=== PATIENT | male | born 1990 | race Caucasian/White ===

== ENCOUNTER 2024-06-06 16:50 | Inpatient (IN) | payer MEDICAID ==
[~2024-06-06] VITALS: Ht 177.8 cm; Wt 99.8 kg
[2024-06-06 16:59] VITALS: BP_SYST 142; PULSE 91; RESP 16; TEMP 97.4; O2SAT 100
[2024-06-06 18:43] LABS: BASOPHILS % (AUTO) 0.1 % (0.0-2.0); EOSINOPHILS % (AUTO) 0.1 % (0.0-4.0); HEMATOCRIT 50.6 % (36-54); HEMOGLOBIN 17.3 g/dL (14.0-18.0); LYMPHOCYTES # (AUTO) 0.5 K/uL (1.0-5.5); LYMPHOCYTES % (AUTO) 3.4 % (20.5-51.5); MEAN CORPUSCULAR HEMOGLOBIN 29 pg (27-31); MEAN CORPUSCULAR HGB CONC 34 % (32-36); MEAN CORPUSCULAR VOLUME 85 fL (79.0-98.0); MONOCYTES # (AUTO) 0.5 K/uL (0.0-1.0); MONOCYTES % (AUTO) 3.3 % (1.7-9.3); NEUTROPHILS # (AUTO) 14.6 K/uL (1.8-7.7); NEUTROPHILS % (AUTO) 93.1 % (40.0-70.0); PLATELET COUNT (AUTO) 179 K/uL (130-430); RED BLOOD CELL COUNT(AUTO) 5.92 MIL/uL (4.2-6.2); RED CELL DISTRIBUTION WIDTH 12.9 % (9.0-15.0); WHITE BLOOD COUNT (AUTO) 15.6 K/uL (4.8-10.8)
[2024-06-06 18:59] LABS: ALBUMIN 4.8 g/dL (3.4-4.8); BILIRUBIN,DIRECT 0.2 mg/dL (0.0-0.3); CALCIUM 10.1 mg/dL (8.4-11.0); CREATININE 1.02 mg/dL (0.55-1.30); POTASSIUM 3.5 mmol/L (3.5-5.1); TOTAL PROTEIN, SERUM 8.8 g/dL (6.4-8.3)
[2024-06-06 19:04] LABS: BILIRUBIN,URINE NEGATIVE (NEGATIVE); BLOOD, URINE NEGATIVE (NEGATIVE); CLARITY/URINE CLEAR (CLEAR); COLOR,URINE YELLOW (YELLOW); GLUCOSE,URINE NEGATIVE (NEGATIVE); KETONES,URINE 3+ (NEGATIVE); LEUKOCYTE ESTERASE ,URINE NEGATIVE (NEGATIVE); NITRITE, URINE NEGATIVE (NEGATIVE); PROTEIN URINE 1+ (NEGATIVE); UROBILINOGEN,URINE 0.2 (0.2-1.0)
[2024-06-06 19:11] LABS: BACTERIA,URINE RARE /HPF (None Seen); RBC,URINE 0-3 /HPF (0-3); WBC,URINE 0-3 /HPF (0-3)
[2024-06-06 19:12] LABS: MUCUS,URINE None Seen /LPF (None Seen)
[2024-06-06] MEDS: NACL 0.9% 1,000 ML IV ONE (19:59)
[2024-06-06] MEDS: MORPHINE 4 MG INJ. 4 MG/ML VIAL IVP ONE (20:00)
[2024-06-06] MEDS: ONDANSETRON HCL 4 MG/2 ML VIAL IVP ONE (20:01)
[2024-06-06] MEDS ORDERED: PIPERACILLIN/TAZOBACTAM 3.375 GM/VIAL (ZOSYN) IV ONE (20:12)
[2024-06-06] MEDS: PIPERACILLIN/TAZO 3.375 GM in NS 50 ML IV ONE (20:52)
[2024-06-06] MEDS: KCL 20 mEq in D5/0.45NS 1000mL 1,000 ML IV ONE (21:34)
[2024-06-06] MEDS: MORPHINE 4 MG INJ. 4 MG/ML VIAL IVP PRN (22:01)
[2024-06-06] MEDS: ONDANSETRON HCL 4 MG/2 ML VIAL IVP PRN (22:02)
[2024-06-07] VITALS (7 sets, daily range): BP systolic 101–141; PULSE 88–105; RESP 16–20; TEMP 96.9–100.2; O2SAT 93–97
[2024-06-07 05:44] LABS: BASOPHILS % (AUTO) 0.1 % (0.0-2.0); CREATININE 1.05 mg/dL (0.55-1.30); HEMOGLOBIN 15.5 g/dL (14.0-18.0); LYMPHOCYTES # (AUTO) 0.7 K/uL (1.0-5.5); MEAN CORPUSCULAR HEMOGLOBIN 29 pg (27-31); MEAN CORPUSCULAR HGB CONC 33 % (32-36); MEAN CORPUSCULAR VOLUME 87 fL (79.0-98.0); MONOCYTES # (AUTO) 1.2 K/uL (0.0-1.0); MONOCYTES % (AUTO) 8.4 % (1.7-9.3); NEUTROPHILS # (AUTO) 12.8 K/uL (1.8-7.7); NEUTROPHILS % (AUTO) 86.5 % (40.0-70.0); PLATELET COUNT (AUTO) 180 K/uL (130-430); POTASSIUM 3.7 mmol/L (3.5-5.1); RED BLOOD CELL COUNT(AUTO) 5.43 MIL/uL (4.2-6.2); RED CELL DISTRIBUTION WIDTH 12.7 % (9.0-15.0); WHITE BLOOD COUNT (AUTO) 14.8 K/uL (4.8-10.8)
[2024-06-07] MEDS: PIPERACILLIN/TAZO 3.375 GM in NS 50 ML IV ONE ×2 (07:20→07:21)
[2024-06-07 07:34] LABS: INR 1.1 (0.80-1.20); PROTHROMBIN TIME 11.2 SECS (9.5-12.5)
[2024-06-07] MEDS: BUPIVACAINE LIPOSOME/PF 266 MG/20 ML VIAL INFIL ONE (09:06)
[2024-06-07] MEDS: fentaNYL CITRATE/PF 100 MCG/2 ML AMP ONE ×2 (09:59→11:07)
[2024-06-07] MEDS: HYDROmorphone 2 MG/ML VIAL ONE (10:06)
[2024-06-07] MEDS ORDERED: HYDROmorphone 1 MG/ML INJ. CARTRIDGE IVP PRN ×2 (11:15)
[2024-06-07] MEDS ORDERED: METOCLOPRAMIDE HCL 10 MG/2 ML VIAL IVP PRN (11:15)
[2024-06-07] MEDS ORDERED: ONDANSETRON HCL 4 MG/2 ML VIAL IVP PRN (11:15)
[2024-06-07] MEDS ORDERED: HYDROmorphone 2 MG/ML VIAL IVP PRN (11:15)
[2024-06-07] MEDS ORDERED: NALOXONE HCL 0.4 MG/ML AMP (NARCAN) IVP PRN ×2 (11:15)
[2024-06-07] MEDS ORDERED: ceFAZolin SODIUM 1 GM VIAL ONE (11:26)
[2024-06-07] MEDS: KCL 20 mEq in D5/0.45NS 1000mL 1,000 ML IV SCH (17:02)
[2024-06-07] MEDS: PIPERACILLIN/TAZO 3.375 GM in NS 50 ML IV SCH (20:38)
[2024-06-08] VITALS: BP_SYST 105; PULSE 89; RESP 16; TEMP 97.5; O2SAT 96
[2024-06-08] MEDS: MORPHINE 4 MG INJ. 4 MG/ML VIAL IVP PRN (04:06)
[2024-06-08 08:26] LABS: BASOPHILS % (AUTO) 0.2 % (0.0-2.0); EOSINOPHILS % (AUTO) 0.1 % (0.0-4.0); HEMATOCRIT 40.6 % (36-54); HEMOGLOBIN 13.5 g/dL (14.0-18.0); LYMPHOCYTES # (AUTO) 0.5 K/uL (1.0-5.5); LYMPHOCYTES % (AUTO) 3.4 % (20.5-51.5); MEAN CORPUSCULAR HEMOGLOBIN 29 pg (27-31); MEAN CORPUSCULAR HGB CONC 33 % (32-36); MEAN CORPUSCULAR VOLUME 87 fL (79.0-98.0); MONOCYTES # (AUTO) 0.8 K/uL (0.0-1.0); MONOCYTES % (AUTO) 5.4 % (1.7-9.3); NEUTROPHILS # (AUTO) 13.3 K/uL (1.8-7.7); NEUTROPHILS % (AUTO) 90.9 % (40.0-70.0); PLATELET COUNT (AUTO) 133 K/uL (130-430); RED BLOOD CELL COUNT(AUTO) 4.69 MIL/uL (4.2-6.2); WHITE BLOOD COUNT (AUTO) 14.6 K/uL (4.8-10.8)
[2024-06-08 08:47] VITALS: BP_SYST 109; PULSE 101; RESP 14; TEMP 99.7; O2SAT 95
[2024-06-08 09:05] LABS: CALCIUM 8.1 mg/dL (8.4-11.0); CREATININE 1.21 mg/dL (0.55-1.30); POTASSIUM 3.7 mmol/L (3.5-5.1)
[2024-06-08] MEDS ORDERED: ACETAMINOPHEN 325 MG TABLET PO PRN (10:00)
[2024-06-08] MEDS: ACETAMINOPHEN 325 MG TABLET PO PRN (10:14)
[2024-06-08 11:09] VITALS: BP_SYST 101; PULSE 103; RESP 16; TEMP 98.3; O2SAT 97
[2024-06-08] MEDS: traMADol HCL HCL 50 MG TABLET (ULTRAM) PO SCH (15:22)
[2024-06-08 15:43] VITALS: BP_SYST 100; PULSE 96; RESP 16; TEMP 98.1; O2SAT 96
[2024-06-08 20:00] VITALS: BP_SYST 116; PULSE 96; RESP 16; TEMP 98.8; O2SAT 96
[2024-06-09] VITALS: BP_SYST 113; PULSE 96; RESP 16; TEMP 98.5; O2SAT 97
[2024-06-09 08:00] VITALS: BP_SYST 114; PULSE 71; RESP 18; TEMP 98.3; O2SAT 98
[2024-06-09 08:16] LABS: BASOPHILS % (AUTO) 0.3 % (0.0-2.0); EOSINOPHILS # (AUTO) 0.1 K/uL (0.0-0.4); HEMATOCRIT 43.5 % (36-54); HEMOGLOBIN 14.7 g/dL (14.0-18.0); LYMPHOCYTES # (AUTO) 0.9 K/uL (1.0-5.5); LYMPHOCYTES % (AUTO) 11.4 % (20.5-51.5); MEAN CORPUSCULAR HEMOGLOBIN 29 pg (27-31); MEAN CORPUSCULAR HGB CONC 34 % (32-36); MEAN CORPUSCULAR VOLUME 87 fL (79.0-98.0); MONOCYTES # (AUTO) 0.8 K/uL (0.0-1.0); MONOCYTES % (AUTO) 9.8 % (1.7-9.3); NEUTROPHILS % (AUTO) 77.5 % (40.0-70.0); PLATELET COUNT (AUTO) 112 K/uL (130-430); RED BLOOD CELL COUNT(AUTO) 5.03 MIL/uL (4.2-6.2); RED CELL DISTRIBUTION WIDTH 13.3 % (9.0-15.0); WHITE BLOOD COUNT (AUTO) 7.7 K/uL (4.8-10.8)
[2024-06-09 11:10] VITALS: BP_SYST 112; PULSE 64; RESP 14; TEMP 97.3; O2SAT 97
[2024-06-09 16:16] VITALS: BP_SYST 113; PULSE 64; RESP 14; TEMP 97.6; O2SAT 97
[2024-06-09 17:50] VITALS: BP_SYST 113; PULSE 64; RESP 18; TEMP 97.6; O2SAT 97
== END 2024-06-09 19:00 | disposition home or self-care (01) | DRG 710 ==
LOC: SED 16:50 → SMU 20:31
PROVIDERS: ADMIT Surgery; ATTEND Surgery
PROC: 0DTJ4ZZ Resection of Appendix, Percutaneous Endoscopic Approach (ICD-10-PCS; principal; 2024-06-07 09:01)
DX: A41.9 Sepsis, unspecified organism (principal); K35.891 Other acute appendicitis without perforation, with gangrene
CPT/HCPCS: 36415; 80048; 80076; 81000; 81001; 81015; 83690; 85025; 85610; 85730; 86886; 86900; 86901; 87040; 87081; 88304; 93005; 94070; 99285; C1727; C9290; J0330; J0690; J1100; J1170; J2270; J2405; J2543; J2704; J2765; J3010; J3490; J7030